=== PATIENT | male | born 1975 | race Caucasian/White ===

== ENCOUNTER 2021-12-21 09:11 | Emergency (ER) | payer OTHER ==
[~2021-12-21 09:11] MED LIST: ASCORBIC ACID500 MG PO; ATARAX25 MG PO; ATROVENT HFA12.9 GM INH; HYDROXYZINE HCL25 MG PO; MEDROL 4MG DOSEP4 MG PO; ONDANSETRON HCL4 MG PO; PROVENTIL HFA6.7 GM INH; ZINC SULFATE220 M1 PO
[2021-12-21 13:22] LABS: BASOPHIL 0.8 % (0-2); EOSINOPHIL 3.1 % (0-5); HCT 47.5 % (42.0-52.0); HGB 15.8 g/dl (13.2-18.0); LYMPHOCYTE 33.2 % (15-48); MCH 31.4 pg (25.0-31.0); MCHC 33.3 g/dL (32.0-36.0); MCV 94.4 fL (78.0-100.0); MPV 11.8 fL (6.0-9.5); NEUTROPHIL 53.6 % (41-80); NRBC 0; PLT 168 K/uL (150-400); RBC 5.03 M/uL (4.70-6.00); RDW 12.1 % (11.5-14.0); WBC 6.2 K/uL (4.0-10.5)
[2021-12-21 13:45] LABS: BILIRUBIN - TOTAL 0.4 mg/dL (0.2-1.0); BUN/CREAT RATIO (CALC) 17.4 RATIO; CREATININE 0.86 mg/dL (0.67-1.17); GLOBULIN (CALCULATION) 3.4 g/dL; POTASSIUM 4.2 mmol/L (3.5-5.1); TOTAL PROTEIN 7.4 g/dL (6.4-8.2)
[2021-12-21] MEDS ORDERED: PEPCID AC20 MG PO (16:43)
== END 2021-12-21 17:12 | disposition home or self-care (01) ==
LOC: FER 09:11
PROVIDERS: Emergency Medicine
DX: R07.89 Other chest pain (principal); Z86.16 Personal history of COVID-19
CPT/HCPCS: 36415; 71045; 80053; 84484; 85025; 93005